=== PATIENT | female | born 1980 | race Caucasian/White ===

== ENCOUNTER → 2016-12-12 | Outpatient (CLI) | payer OTHER ==
[~2016-12-12] MED LIST: BACL10TA PO; BUPR1TAB29 PO; IBUP800T23 PO; LAMO200T PO; MELO-1 PO; MIREIUD I-UTERINE; NAPR500T PO; PNEU25IN IM; SERT25TA83 PO; XANA1TAB2 PO
== END ==
LOC: CPRE 12:04
PROVIDERS: ATTEND Obstetrics & Gynecology Gynecology
DX: Z01.812 Encounter for preprocedural laboratory examination (principal); N93.8 Other specified abnormal uterine and vaginal bleeding

== ENCOUNTER → 2016-12-22 | Day surgery (SDC) | payer OTHER ==
--- NOTE | 2016-12-12 14:23 | MH ---
cc: PASCUAL KLEIN MD,TITI ROBERTSON DATE OF ADMISSION: 12/22/2016 REASON FOR ADMISSION Hysteroscopic IUD removal and endometrial ablation. PATIENT HISTORY The patient is a 36-year-old white female, 4, para 3, status post prior tubal ligation. She has had issues with dysfunctional bleeding and dysmenorrhea unresponsive to medicinal therapy. She has had an IUD in place, still having pain and bleeding. She has had a normal ultrasound and at this point wants to avoid hysterectomy. She is scheduled for IUD removal and endometrial ablation. PAST MEDICAL HISTORY 1. Bipolar disorder. 2. Anxiety. 3. Asthma. No heart, lung, liver disease, hypertension, diabetes or stroke. MEDICATIONS 1. Mirena IUD in place. 2. Sertraline 20 mg q. daily. 3. BuSpar 150 mg q. daily. 4. Lamictal 20 mg b.i.d. 5. Xanax 1 mg q.8h. p.r.n. PAST SURGICAL HISTORY 1. Tubal ligation. 2. Cryosurgery of the cervix. 3. Breast augmentation. SOCIAL HISTORY Smokes a half pack a day, 23-[id number] history. No alcohol or drugs. . Good social support. OB HISTORY Three vaginal deliveries. ALLERGIES None. 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 IUD placement as above. Dysmenorrhea as noted above. FAMILY HISTORY Noncontributory. REVIEW OF SYSTEMS A above. No chest pain, orthopnea, PND. No nausea, vomiting, fever or chills. No change in bladder or bowel habits. The remainder of a 14-point review is negative. PHYSICAL EXAMINATION VITAL SIGNS: She is afebrile. Vital signs stable. Blood pressure 120/70. Height 5 feet 5 inches, weight 90, BMI 31. GENERAL: The patient is alert and oriented in no acute distress. No sign of cognitive dysfunction or depression. HEENT: Within normal limits. NECK: Supple. No JVD. CHEST: Clear. HEART: Regular rate and rhythm. ABDOMEN: Soft, nontender. No hepatosplenomegaly. BACK: No CVA tenderness. PELVIC: Exam will be detailed under anesthesia. EXTREMITIES: Normal. SKIN: Without rashes. NEUROLOGIC: Nonfocal. No DVT signs. ASSESSMENT/PLAN Patient with dysmenorrhea, dysfunctional bleeding, unresponsive to medicinal therapy. Discussed options for management and treatment. She wants to have the IUD removed and have endometrial ablation performed. We discussed options for management and treatment. She is aware of the risks, benefits and alternatives to the procedure. She is also aware that the pain may not be relieved and bleeding may continue. She is also aware of the possibility of post ablative of tubal pain syndrome. At this point will use DVT prophylaxis with sequential compression device and antibiotic prophylaxis with Ancef one gram. Anticipate outpatient procedure. MD CK Clarke/LETICIA /1:52 PM /2:11 PM
[~2016-12-22] VITALS: Ht 166.4 cm; Wt 85.6 kg
[~2016-12-22] MED LIST changes: +*MEPERIDINE 25 MG INJ VIAL PERIprocedural Use ONLY ONE; +*morphine SULFATE 8 MG/ML PERIprocedure ONLY ONE; +DO NOT ADM ANY ANTICOAGULANT DRUGS XX PRN; -IBUP800T23 PO; +INSULIN HUMAN REGULAR 1,000 UNITS/10 ML VIAL SQ PRN; +KETOROLAC TROMETHAMINE 10 MG TAB PO PRN; +KETOROLAC TROMETHAMINE 30 MG/ML (IVP) VIAL IVP PRN; +KETOROLAC TROMETHAMINE 60 MG/2 ML (IM) VIAL IM ONE; +LACTATED RINGER'S 1000 ML IV SCH; +METOPROLOL TARTRATE 25 MG TAB PO PRN; +ONDANSETRON HCL 4 MG/2 ML VIAL IV PUSH ONE; +ONDANSETRON HCL 4 MG/2 ML VIAL IV PUSH PRN; +PROPOFOL 200 MG/20 ML AMP IV ONE; +SODIUM CHLORID 0.9% 500 ML IV SCH; +fentaNYL CITRATE 250 MCG/5 ML AMP ONE
[2016-12-22 08:01] VITALS: BP 101/66; PULSE 76; RESP 16; TEMP 98; O2SAT 98
[2016-12-22] MEDS: ceFAZolin 1,000 MG/NS 100 ML IV SCH ×4 (09:43→09:47)
[2016-12-22 13:58] VITALS: BP 96/62; PULSE 75; RESP 20; TEMP 98.9; O2SAT 96
--- NOTE | 2016-12-27 20:13 | MP ---
cc: JB KLEIN MD,TITI MCCONNELL DATE OF SURGERY 12/22/2016 PREOPERATIVE DIAGNOSES 1. IUD with non retrievable string. 2. Dysfunctional bleeding unresponsive to medicinal therapy. POSTOPERATIVE DIAGNOSES 1. IUD with non retrievable string. 2. Dysfunctional bleeding unresponsive to medicinal therapy. PROCEDURE 1. Hysteroscopic removal of IUD. 2. NovaSure radiofrequency endometrial ablation. 3. Diagnostic hysteroscopy and curettage. SURGEON Dr. Jb Klein ANESTHESIA Laryngeal mask. BLOOD LOSS Less than 10 mL. ADMISSIONS GATE ATTEND[facility] staff times one. URINE OUTPUT 200 cc. FINDINGS External genitalia normal. Pop Q score Aa is -1, Ap is -1, point C is -6, total vaginal length is 10, genital hiatus is 8, perineal body is 4. Rectal exam was normal. Uterus is mobile. Cavity sounds to 9 cm, width is 3 cm. Hysteroscopic evaluation of the uterus shows IUD in place. No other significant findings. SPECIMENS 1. IUD for gross inspection only. 2. Endometrial curettage. COMPLICATIONS None. DISPOSITION Recovery room stable. COUNTS Needle and sponge count correct. DRAINS None. Antibiotic prophylaxis Ancef 1 gram. DVT prophylaxis sequential compression device. Time-out procedure per protocol. SUMMARY AND INDICATION FOR PROCEDURE The patient with dysmenorrhea, dysfunctional bleeding with lost IUD. The patient wants the IUD removed and endometrial ablation performed. The patient was taken to the operating theater and prepped and draped in fashion appropriate for the planned procedure. She was placed in dorsal lithotomy position with careful attention paid to placement of the legs in stirrups to avoid undue stress to sensitive neurovascular structures. Above findings noted. Neurovascular integrity documented. Bladder was drained. Cervix identified. Tenaculum was placed on the anterior cervix, uterus sounded to 9 cm, 5 mm scope was placed. Normal saline used for distension medium. IUD was identified and removed with graspers. Curettage was performed. Endometrial ablation was performed using NovaSure device. Calculated cavity length was 5 cm with width of 3. Computerized burn cycle uncomplicated. Repeat hysteroscopy showed complete uniform burn pattern with no sign of any perforation or damage to the uterus. Cervix required one suture to render the puncture sites from the tenaculum hemostatic. Procedure was concluded. The patient to recovery in stable condition. If the patient has issues with continued bleeding she would be reasonable supracervical hysterectomy candidate. MD CK Clarke/TRIXIE /11:54 AM /7:58 PM
== END | disposition home or self-care (01) ==
LOC: HSDC 07:17
PROVIDERS: ATTEND Obstetrics & Gynecology Gynecology
DX: Z30.432 Encounter for removal of intrauterine contraceptive device (principal); N93.8 Other specified abnormal uterine and vaginal bleeding; N94.6 Dysmenorrhea, unspecified; N71.1 Chronic inflammatory disease of uterus; J45.909 Unspecified asthma, uncomplicated
CPT/HCPCS: 00952; 58562; 58563; 88305; J0690; J1885; J2175; J2270; J2405; J3010

== ENCOUNTER 2017-12-19 15:37 | Emergency (ER) | payer MEDICAID, OTHER ==
[~2017-12-19] VITALS: Ht 165.1 cm; Wt 89.0 kg
[~2017-12-19 15:37] MED LIST changes: -*MEPERIDINE 25 MG INJ VIAL PERIprocedural Use ONLY ONE; -*morphine SULFATE 8 MG/ML PERIprocedure ONLY ONE; -DO NOT ADM ANY ANTICOAGULANT DRUGS XX PRN; -INSULIN HUMAN REGULAR 1,000 UNITS/10 ML VIAL SQ PRN; -KETOROLAC TROMETHAMINE 10 MG TAB PO PRN; -KETOROLAC TROMETHAMINE 30 MG/ML (IVP) VIAL IVP PRN; -KETOROLAC TROMETHAMINE 60 MG/2 ML (IM) VIAL IM ONE; -LACTATED RINGER'S 1000 ML IV SCH; -MELO-1 PO; +MELO15TA20 PO; -METOPROLOL TARTRATE 25 MG TAB PO PRN; -NAPR500T PO; +NAPR500T2 PO; -ONDANSETRON HCL 4 MG/2 ML VIAL IV PUSH ONE; -ONDANSETRON HCL 4 MG/2 ML VIAL IV PUSH PRN; -PROPOFOL 200 MG/20 ML AMP IV ONE; -SODIUM CHLORID 0.9% 500 ML IV SCH; -fentaNYL CITRATE 250 MCG/5 ML AMP ONE
[2017-12-19 15:43] VITALS: BP 110/54; PULSE 118; RESP 16; TEMP 99.1; O2SAT 98
[2017-12-19] MEDS ORDERED: SODIUM CHLOR 0.9% 1000 ML INJ 1,000 ML IV SCH (16:07)
--- NOTE | 2017-12-19 16:11 | PD ---
HPI Chief Complaint: GI Complaint Time Seen by Provider: 15:59 Travel History International Travel<30 days: No Contact w/Intl Traveler<30days: No Traveled to known affect area: No History of Present Illness HPI 37-year-old female here for evaluation of headache, nausea, and vomiting. Patient reports that her children at home has had vomiting and diarrhea for the last couple of days and was diagnosed with a stomach virus. Her symptoms started today. She had one episode of vomiting today. She has history of migraine headaches and reports having a headache that started today that feels similar to a migraine. Pain is frontal, pressure, 7 out of 10, worse with leaning forward. She did not take her sumatriptan today. She is unsure she has had a fever. No abdominal pain. No history of abdominal surgeries. PFSH Past Medical History Hx Anticoagulant Therapy: No Asthma: Yes Bipolar Disorder: Yes Anxiety: Yes Depression: Yes Cardiovascular Problems: No Diabetes: No Diminished Hearing: No Endocrine: No Genitourinary: No Hepatitis: No Hiatal Hernia: No Immune Disorder: No Musculoskeletal: Yes (arthritis in back) Neurologic: Yes (numbness down legs) Psychiatric: Yes (PTSD) Reproductive: No Respiratory: No Immunizations Current: No Thyroid Disease: No Tetanus Vaccination: < 5 Years Influenza Vaccination: Yes ?: Not LMP: unknown : 4 Para: 3 Miscarriage: 1 : 0 Tubal Ligation: Yes Past Surgical History AICD: No Body Medical Devices: breast implants Joint Replacement: No Oral Surgery: Yes Pacemaker: No Other Surgery: Yes (BREAST AUG., LIPO, LUMPECTOMY) Social History Alcohol Use: Yes (SOCIALLY) Tobacco Use: Yes (5 cig per day ) Substance Use: No Allergies-Medications (Allergen,Severity, Reaction): Coded Allergies: No Known Allergies (Verified Adverse Reaction, Unknown, 12/19/17) Reported Meds & Prescriptions Reported Meds & Active Scripts Active Reported Meloxicam 15 Mg Tab 15 Mg PO DAILY PRN Naproxen 500 Mg Tab 500 Mg PO BID Baclofen 10 Mg Tab 10 Mg PO Q8HR PRN Mirena (Levonorgestrel (Iud)) 20 Mcg/24 Hr Iud 52 Mg I-UTERINE ONCE Sertraline (Sertraline HCl) 25 Mg Tab Unknown Dose PO DAILY Lamotrigine 200 Mg Tab 200 Mg PO BID Xanax (Alprazolam) 1 Mg Tab 1 Mg PO Q8H PRN Review of Systems Except as stated in HPI: all other systems reviewed are Neg Physical Exam Narrative GENERAL: Well-developed, well-nourished, awake, alert, comfortable, no apparent distress. SKIN: Focused skin assessment warm/dry. No rash. HEAD: Atraumatic. Normocephalic. EYES: Pupils equal, round, 3 mm, reactive to light. EOMI. No scleral icterus. No injection or drainage. ENT: Mucous membranes pink and dry. NECK: Trachea midline. No JVD. No nuchal rigidity. CARDIOVASCULAR: Regular rate and rhythm. No murmur appreciated. RESPIRATORY: No accessory muscle use. Clear to auscultation. Breath sounds equal bilaterally. GASTROINTESTINAL: Abdomen soft, non-tender, nondistended. Normal bowel sounds. MUSCULOSKELETAL: No obvious deformities. No clubbing. No cyanosis. No edema. NEUROLOGICAL: Awake and alert. No obvious cranial nerve deficits. Motor grossly within normal limits. Normal speech. PSYCHIATRIC: Appropriate mood and affect; insight and judgment normal. Data Data Last Documented VS Vital Signs Date Time Temp Pulse Resp B/P (MAP) Pulse Ox O2 Delivery O2 Flow Rate FiO2 12/19/17 16:47 101 16 104/60 (75) 99 Room Air 12/19/17 15:43 99.1 Orders Orders Complete Blood Count With Diff (12/19/17 16:07) Comprehensive Metabolic Panel (12/19/17 16:07) Prothrombin Time / Inr (Pt) (12/19/17 16:07) Act Partial Throm Time (Ptt) (12/19/17 16:07) Urinalysis - C+S If Indicated (12/19/17 16:07) Iv Access Insert/Monitor (12/19/17 16:07) Ecg Monitoring (12/19/17 16:07) Oximetry (12/19/17 16:07) Sodium Chlor 0.9% 1000 Ml Inj (Ns 1000 M (12/19/17 16:07) Sodium Chloride 0.9% Flush (Ns Flush) (12/19/17 16:15) Metoclopramide Inj (Reglan Inj) (12/19/17 16:15) Ketorolac Inj (Toradol Inj) (12/19/17 16:15) Acetaminophen (Tylenol) (12/19/17 16:15) Influenzae A/B Antigen (12/19/17 16:08) Labs Laboratory Tests Test 12/19/17 16:20 White Blood Count 14.2 TH/MM3 Red Blood Count 3.73 MIL/MM3 Hemoglobin 12.2 GM/DL Hematocrit 36.4 % Mean Corpuscular Volume 97.6 FL Mean Corpuscular Hemoglobin 32.7 PG Mean Corpuscular Hemoglobin Concent 33.5 % Red Cell Distribution Width 12.8 % Platelet Count 236 TH/MM3 Mean Platelet Volume 7.0 FL Neutrophils (%) (Auto) 93.1 % Lymphocytes (%) (Auto) 2.0 % Monocytes (%) (Auto) 4.2 % Eosinophils (%) (Auto) 0.3 % Basophils (%) (Auto) 0.4 % Neutrophils # (Auto) 13.2 TH/MM3 Lymphocytes # (Auto) 0.3 TH/MM3 Monocytes # (Auto) 0.6 TH/MM3 Eosinophils # (Auto) 0.0 TH/MM3 Basophils # (Auto) 0.1 TH/MM3 CBC Comment DIFF FINAL Differential Comment Prothrombin Time 10.0 SEC Prothromb Time International Ratio 1.0 RATIO Activated Partial Thromboplast Time 26.8 SEC Blood Urea Nitrogen 11 MG/DL Creatinine 0.77 MG/DL Random Glucose 136 MG/DL Total Protein 6.3 GM/DL Albumin 3.3 GM/DL Calcium Level 8.0 MG/DL Alkaline Phosphatase 72 U/L Aspartate Amino Transf (AST/SGOT) 13 U/L Alanine Aminotransferase (ALT/SGPT) 17 U/L Total Bilirubin 0.5 MG/DL Sodium Level 138 MEQ/L Potassium Level 3.9 MEQ/L Chloride Level 104 MEQ/L Carbon Dioxide Level 28.3 MEQ/L Anion Gap 6 MEQ/L Estimat Glomerular Filtration Rate 84 ML/MIN [facility] Medical Decision Making Medical Screen Exam Complete: Yes Emergency Medical Condition: Yes Differential Diagnosis Gastroenteritis, dehydration, influenza, viral illness, metabolic abnormality, acute intra-abdominal/surgical process unlikely Narrative Course Initial vital signs show heart rate 118, blood pressure 110/54, pulse ox 98% on room air, oral temp of 99.1F. Heart rate improved after a liter of normal saline IV CBC: WBC 4.2, hemoglobin 12.2, hematocrit 36.4, platelets 236, neutrophils 93%. CMP is essentially unremarkable. Influenza is negative. The patient was given 2 L normal saline IV, IV Toradol, and IV Reglan, and on reassessment she is sleeping comfortably. She states that her headache has resolved and her nausea has also improved. She is tolerating clear liquids in the emergency department. Elevated white count is likely secondary to stress demargination from vomiting. Her children at home have gastroenteritis symptoms currently. Her abdominal exam shows no tenderness. She is stable for discharge home with outpatient follow-up with a primary care physician this week. She was advised to stay hydrated with plenty of fluids. She was informed on when to return to the emergency department. She verbalizes understanding and agreement with plan. Diagnosis Primary Impression: Migraine headache Qualified Codes: G43.909 - Migraine, unspecified, not intractable, without status migrainosus Additional Impression: Nausea and vomiting Qualified Codes: R11.2 - Nausea with vomiting, unspecified Referrals: Primary Care Physician 3 days Additional Instructions: Follow-up with a primary care physician this week. Stay hydrated with plenty of fluids. Return to the emergency department for worsening symptoms or any other concerns. Scripts Ondansetron Odt (Zofran Odt) 4 Mg Tab 4 MG SL Q8HR Y for Nausea/Vomiting, #20 TAB 0 Refills Prov: Lobo Williamson MD 12/19/17 Disposition: 01 DISCHARGE HOME Condition: Stable Lobo Williamson MD Dec 19, 2017 16:11
[2017-12-19] MEDS ORDERED: KETOROLAC TROMETHAMINE 30 MG/ML (IVP) VIAL IV PUSH ONE (16:15)
[2017-12-19] MEDS ORDERED: ACETAMINOPHEN 325 MG TAB PO ONE (16:15)
[2017-12-19] MEDS ORDERED: SODIUM CHLORIDE 0.9% FLUSH 10 ML FLUSH IV FLUSH PRN (16:15)
[2017-12-19] MEDS ORDERED: METOCLOPRAMIDE HCL 10 MG/2 ML VIAL IV PUSH ONE (16:15)
[2017-12-19 16:30] LABS: AUTOMATED NEUTROPHIL # 13.2 TH/MM3 (1.8-7.7); BASOPHIL # 0.1 TH/MM3 (0-0.2); BASOPHIL % 0.4 % (0.0-2.0); EOSINOPHIL % 0.3 % (0.0-4.0); HEMATOCRIT 36.4 % (35.0-46.0); HEMOGLOBIN 12.2 GM/DL (11.6-15.3); LYMPHOCYTE # 0.3 TH/MM3 (1.0-4.8); MEAN CELL VOLUME 97.6 FL (80.0-100.0); MEAN CORPUSCULAR HEMOGLOBIN 32.7 PG (27.0-34.0); MEAN CORPUSCULAR HGB CONC 33.5 % (32.0-36.0); MONO % 4.2 % (0.0-8.0); MONOCYTE # 0.6 TH/MM3 (0-0.9); NEUT % 93.1 % (16.0-70.0); PLATELET COUNT 236 TH/MM3 (150-450); RED BLOOD COUNT 3.73 MIL/MM3 (4.00-5.30); RED CELL DISTRIBUTION WIDTH 12.8 % (11.6-17.2); WHITE BLOOD COUNT 14.2 TH/MM3 (4.0-11.0)
[2017-12-19 16:36] LABS: CHLORIDE 104 MEQ/L (98-107); SODIUM (NA) 138 MEQ/L (136-145)
[2017-12-19 16:39] VITALS: RESP 17; O2SAT 96
[2017-12-19 16:41] LABS: ALBUMIN 3.3 GM/DL (3.4-5.0); BICARBONATE 28.3 MEQ/L (21.0-32.0); GLUCOSE,RANDOM 136 MG/DL (74-106)
[2017-12-19 16:42] LABS: BLOOD UREA NITROGEN 11 MG/DL (7-18)
[2017-12-19 16:44] LABS: ALT (GPT) 17 U/L (10-53)
[2017-12-19 16:45] LABS: AST (GOT) 13 U/L (15-37)
[2017-12-19 16:46] LABS: CREATININE 0.77 MG/DL (0.50-1.00); GLOMERULAR FILTRATION RATE 84 ML/MIN (>89); TOTAL BILIRUBIN ADULT 0.5 MG/DL (0.2-1.0); TOTAL PROTEIN 6.3 GM/DL (6.4-8.2)
[2017-12-19 16:47] VITALS: BP 104/60; PULSE 101; RESP 16; O2SAT 99
[2017-12-19 16:47] LABS: ALKALINE PHOSPHATASE 72 U/L (45-117)
[2017-12-19] MEDS ORDERED: ZOFR4TAB3 SL (17:35)
[2017-12-19 17:40] VITALS: RESP 16
[2017-12-19] MEDS ORDERED: SODIUM CHLOR 0.9% 1000 ML INJ 1,000 ML IV ONE (17:45)
[2017-12-19 18:58] VITALS: BP 103/64
== END 2017-12-19 19:00 | disposition home or self-care (01) ==
LOC: PHED 15:37
DX: G43.909 Migraine, unspecified, not intractable, without status migrainosus (principal); R11.2 Nausea with vomiting, unspecified; J45.909 Unspecified asthma, uncomplicated; F31.9 Bipolar disorder, unspecified; F17.200 Nicotine dependence, unspecified, uncomplicated
CPT/HCPCS: 80053; 85025; 85610; 85730; 87804; 96360; 96361; 96372; 99284; J1885; J2765; J7030